=== PATIENT | male | born 1960 | race African-American/Black ===

== ENCOUNTER 2018-01-08 10:46 | Emergency (ER) | payer MEDICAID ==
[~2018-01-08] VITALS: Ht 185.4 cm; Wt 93.9 kg
[~2018-01-08 10:46] MED LIST: ACETAMINOP650 MG/20. PO; ASPIR 8181 MG ORAL; BACTRIM-DS1 EA ORAL; CEPHALEXIN500 MG PO; CUBICIN1 MG IV; HYDROMORPHONE HC4 M1 PO; IBUPROFEN600 MG PO; KEFLEX500 MG PO; LIDOCAINE HC35.44 GM TP; LIORESAL10 MG PO; LOVENOX10 M2 SUBQ; NORCO 5-325 TA1 EACH ORAL; NORCO 5-325 TA1 EACH PO; NORCO1 E1 ORAL; NORCO1 EA ORAL; OXYCODONE HCL5 M2 ORAL; PERCOCET 5-3251 EACH PO; PLAVIX75 MG ORAL; SEPTRA DS TABL1 EACH PO; TRAMADOL HCL50 MG PO; VANCOMYCIN1 GM/2502 IVPB; VICODIN 5-5001 EACH PO; lovenox
[2018-01-08] MEDS ORDERED: LYRICA75 M1 ORAL (11:03)
[2018-01-08] MEDS ORDERED: Norco 5mg/325mg tab PO ONE (11:15)
--- NOTE | 2018-01-08 11:37 | Emergency Room Report ---
History of Present Illness General Chief Complaint: Upper Extremity Injury Source: Patient Present Illness HPI 57-year-old male presents ED complaining of right elbow pain status post fall. States he had a mechanical trip and fall store yesterday and landed on his right elbow. He denies hitting his head or LOC. States he is currently taking Plavix and Lovenox but has not taken this medication one week. Notes bruising and swelling to the right elbow today. Pain is throbbing, 10 out of 10, nonradiating. Denies any other injuries. No other aggravating relieving factors. Denies any other associated symptoms Allergies: Coded Allergies: PIPERACILLIN (Verified Allergy, Severe, 05/01/13) TAZOBACTAM (Verified Allergy, Severe, 05/01/13) ADHESIVE (Unverified Allergy, Mild, 01/21/15) Patient History Past Medical History: HTN, ulcer, GERD, other - DVT Past Surgical History: none, other - prosthetic L leg Pertinent Family History: none Social History: Denies: smoking, alcohol use, drug use Immunizations: UTD Reviewed Nursing Documentation: PMH: Agreed; PSxH: Agreed Nursing Documentation-PMH Past Medical History: No History, Except For Hx Cardiac Problems: Yes - Prosthetic left leg, blood clotts Hx Hypertension: Yes Hx Cancer: No Hx Gastrointestinal Problems: Yes - GERD, GI ULCER Hx Neurological Problems: Yes Hx Numbness: Yes - LEFT LEG Review of Systems All Other Systems: negative except mentioned in HPI Physical Exam Vital Signs Date Time Temp Pulse Resp B/P (MAP) Pulse Ox O2 Delivery O2 Flow Rate FiO2 01/08/18 10:53 98.5 79 18 176/85 98 Room Air 98.4 Sp02 EP Interpretation: reviewed, normal General Appearance: no apparent distress, alert, GCS 15, non-toxic Head: normocephalic Eyes: bilateral eye normal inspection, bilateral eye PERRL ENT: normal ENT inspection Neck: normal inspection Respiratory: normal inspection Cardiovascular #1: normal inspection Gastrointestinal: normal inspection Rectal: deferred Genitourinary: no CVA tenderness Musculoskeletal: swelling, tender - R elbow Neurologic: alert, oriented x3, responsive, motor strength/tone normal, sensory intact, speech normal Psychiatric: judgement/insight normal, memory normal, mood/affect normal, no suicidal/homicidal ideation Skin: other - ecchymoses/bruising R elbow Lymphatic: normal inspection Medical Decision Making Diagnostic Impression: Primary Impression: Elbow contusion Qualified Codes: S50.01XA - Contusion of right elbow, initial encounter ER Course Hospital Course 57-year-old M presents to ED complaining of R elbow pain s/p trip and fall Differential diagnoses include: Fracture, dislocation, sprain, contusion Clinical course Patient placed on stretcher. After initial history and physical, I ordered pain medications and Xrays of R elbow Xrays prelim read shows no acute fracture/dislocation. placed in acewrap Diagnosis - elbow contusion Stable and discharged to home with prescription for Tylenol. apply ice, keep elevated. weight bear as tolerated. Followup with PMD. Return to ED if symptoms recur or worsen Other X-Ray Diagnostic Results Other X-Ray Diagnostic Results : X-Ray ordered: R elbow # of Views/Limited Vs Complete: 3 View Indication: Pain EP Interpretation: Yes Interpretation: no dislocation, no fractures, other - +soft tissue swelling Impression: No acute disease Electronically Signed by: Electronically signed by Emigdio Mason MD Last Vital Signs Date Time Temp Pulse Resp B/P (MAP) Pulse Ox O2 Delivery O2 Flow Rate FiO2 01/08/18 11:18 98.5 01/08/18 10:53 79 18 176/85 98 Room Air Status: improved Disposition: HOME, SELF-CARE Condition: Stable Scripts Acetaminophen* (TYLENOL EXTRA STRENGTH*) 500 Mg Tablet 500 MG ORAL Q8H PRN for Prn Headache/Temp > 101, #30 TAB 0 Refills Prov: Emigdio Mason MD 01/08/18 Referrals: NOT CHOSEN IPA/,REFERRING (PCP) Emigdio Mason MD Jan 08, 2018 11:37
[2018-01-08 12:04] VITALS: BP 140/73
[2018-01-08 12:30] VITALS: BP 140/73
[2018-01-08] MEDS ORDERED: TYLENOL EXTRA500 MG ORAL (12:31)
--- NOTE | 2018-01-08 16:41 | Diagnostic Imaging Report ---
Indications:Pain Technique: Three or 4 views of the right elbow Comparison: None Findings: There is marked soft tissue swelling. No definite acute fractures. No dislocations. No joint effusion. What are probably dystrophic calcifications are seen posterior to the distal humerus Impression: No acute bony trauma. Findings as noted
== END 2018-01-08 12:30 | disposition home or self-care (01) ==
LOC: EMR 11:20
DX: S50.01XA Contusion of right elbow, initial encounter (principal); W01.0XXA Fall on same level from slipping, tripping and stumbling without subsequent striking against object, initial encounter; Y92.9 Unspecified place or not applicable; I10 Essential (primary) hypertension; K21.9 Gastro-esophageal reflux disease without esophagitis; Z79.01 Long term (current) use of anticoagulants; Z79.02 Long term (current) use of antithrombotics/antiplatelets; Z91.14 Patient's other noncompliance with medication regimen
CPT/HCPCS: 99283

== ENCOUNTER 2018-04-04 10:54 | Emergency (ER) | payer MEDICAID ==
[~2018-04-04] VITALS: Ht 185.4 cm; Wt 90.7 kg
[~2018-04-04 10:54] MED LIST changes: +LYRICA75 M1 ORAL; +TYLENOL EXTRA500 MG ORAL
[2018-04-04 11:22] VITALS: BP 117/64
[2018-04-04 11:58] VITALS: BP 117/64
--- NOTE | 2018-04-04 14:14 | Emergency Room Report ---
History of Present Illness General Chief Complaint: General Complaint Source: Patient Present Illness HPI Patient presents reporting that he had right-sided elbow surgery On at [facility] He reports that he was in contact with the facility regarding the need for further assistance Patient also reports that he was given under dosing of pain medication Patient reports that after discussion with [facility] He presents here to see if there is any other avenue of assistance Allergies: Coded Allergies: PIPERACILLIN (Verified Allergy, Severe, 05/01/13) TAZOBACTAM (Verified Allergy, Severe, 05/01/13) ADHESIVE (Unverified Allergy, Mild, 01/21/15) Patient History Past Medical History: see triage record Pertinent Family History: none Reviewed Nursing Documentation: PMH: Agreed; PSxH: Agreed Nursing Documentation-PMH Past Medical History: No History, Except For Hx Cardiac Problems: Yes - Prosthetic left leg, blood clotts Hx Hypertension: Yes Hx Pacemaker: No Hx Asthma: No Hx COPD: No Hx Diabetes: No Hx Cancer: No Hx Gastrointestinal Problems: Yes - GERD, GI ULCER Hx Dialysis: No History Of Psychiatric Problem: No Hx Neurological Problems: Yes Hx Cerebrovascular Accident: No Hx Seizures: No Hx Numbness: Yes - LEFT LEG Review of Systems All Other Systems: negative except mentioned in HPI Physical Exam Vital Signs Date Time Temp Pulse Resp B/P (MAP) Pulse Ox O2 Delivery O2 Flow Rate FiO2 04/04/18 10:57 98.5 107 18 117/64 99 Room Air 98.4 Sp02 EP Interpretation: reviewed, normal General Appearance: well appearing, no apparent distress Head: normocephalic, atraumatic Eyes: bilateral eye PERRL, bilateral eye EOMI ENT: hearing grossly normal, normal pharynx Neck: full range of motion, supple Respiratory: lungs clear, normal breath sounds Cardiovascular #1: regular rate, rhythm Gastrointestinal: non tender Musculoskeletal: other - Cast in place on the right upper arm no sign of any compartment syndrome no edema Neurologic: alert, oriented x3, responsive Skin: normal color Lymphatic: no adenopathy Medical Decision Making Diagnostic Impression: Primary Impression: medical screening evaluation Additional Impression: elbow surgery ER Course Patient is awake and alert Has appropriate medical screening evaluation Patient asking regarding home assistance and pain medication I did notify him that on [employer] system the patient appears to be receiving significant amount of hydromorphone and he does report that he does have this medication left He was also instructed to follow-up at his primary facility where the procedure was performed if he requires any further assistance And at this time is appropriate for close outpatient follow-up Last Vital Signs Date Time Temp Pulse Resp B/P (MAP) Pulse Ox O2 Delivery O2 Flow Rate FiO2 04/04/18 11:58 98.5 107 18 117/64 99 Room Air Status: unchanged Disposition: HOME, SELF-CARE Condition: Stable Referrals: NOT CHOSEN IPA/MD,REFERRING Patient Instructions: Medical Screening Exam Additional Instructions: Please follow-up at facility where procedure was performed Kimmy Mai DO Apr 04, 2018 14:14
== END 2018-04-04 12:13 | disposition home or self-care (01) ==
LOC: EMR 11:06
DX: Z48.89 Encounter for other specified surgical aftercare (principal); I10 Essential (primary) hypertension; Z87.19 Personal history of other diseases of the digestive system
CPT/HCPCS: 99282

== ENCOUNTER 2018-04-28 12:48 | Emergency (ER) | payer MEDICAID ==
[~2018-04-28] VITALS: Ht 185.4 cm; Wt 95.3 kg
--- NOTE | 2018-04-28 13:09 | Emergency Room Report ---
History of Present Illness General Chief Complaint: Upper Extremity Injury Source: Patient, Medical Record Present Illness HPI 57-year-old male patient presents ER complaining of right elbow pain status post trip and fall injury earlier today. Reports she was getting into his car when he "slipped on some oil" and fell onto his right elbow. Reports a history of right elbow surgery about a month ago to repair a ruptured tendon. Denies hitting his head or loss consciousness. Reports right-hand dominant. Denies loss of range of motion or pain in wrist. Reports pain and swelling site of injury. Reports on pain medication currently, states he took 4 mg of Dilaudid earlier today. states that he takes Dilaudid due to chronic pain and vascular pain in legs. Denies numbness or tingling. Denies bleeding. Allergies: Coded Allergies: PIPERACILLIN (Verified Allergy, Severe, 05/01/13) TAZOBACTAM (Verified Allergy, Severe, 05/01/13) ADHESIVE (Unverified Allergy, Mild, 01/21/15) Patient History Past Medical History: see triage record Reviewed Nursing Documentation: PMH: Agreed; PSxH: Agreed Nursing Documentation-PMH Past Medical History: No History, Except For Hx Cardiac Problems: No - Prosthetic left leg, blood clotts Hx Hypertension: Yes Hx Pacemaker: No Hx Asthma: No Hx COPD: No Hx Diabetes: No Hx Cancer: No Hx Gastrointestinal Problems: Yes - GERD, GI ULCER Hx Dialysis: No Hx Neurological Problems: Yes Hx Cerebrovascular Accident: No Hx Seizures: No Hx Numbness: Yes - LEFT LEG Review of Systems All Other Systems: negative except mentioned in HPI Physical Exam Vital Signs Date Time Temp Pulse Resp B/P (MAP) Pulse Ox O2 Delivery O2 Flow Rate FiO2 04/28/18 12:51 97.4 100 18 151/97 95 Room Air 97.3 Sp02 EP Interpretation: reviewed, normal General Appearance: well appearing, no apparent distress, alert, GCS 15, non- toxic Head: normocephalic, atraumatic Eyes: bilateral eye normal inspection, bilateral eye PERRL ENT: hearing grossly normal, normal pharynx, no angioedema, normal voice, uvula midline, moist mucus membranes Neck: full range of motion Respiratory: lungs clear, normal breath sounds, no rhonchi, no respiratory distress, no accessory muscle use, no wheezing, speaking full sentences Cardiovascular #1: regular rate, rhythm, no edema Cardiovascular #2: 2+ radial (R), 2+ radial (L) Musculoskeletal: back normal, digits/nails normal, gait/station normal, normal range of motion, non-tender, swelling - right posterior elbow, ecchymosis, other - NVI, no snuffbox tenderness, no erythema or warmth to touch, sensation intact to light touch, cap refill less than 2 seconds, tender - right posterior elbow Neurologic: alert, oriented x3, responsive, motor strength/tone normal, sensory intact Psychiatric: mood/affect normal Skin: no rash Medical Decision Making PA Attestation Dr. Mason is my supervising Physician whom patient management has been discussed with. Diagnostic Impression: Primary Impression: Elbow contusion ER Course Pt. presents to the ED c/o right elbow pain and swelling. Ddx considered but are not limited to fracture, sprain, strain, contusion, dislocation. No erythema, no warmth to touch, no fever, nontoxic appearing, low suspicion for septic joint. Soft compartments, no pulselessness, no pallor, no paresthesias, low suspicion for compartment syndrome at this time. Vital signs: are WNL, pt. is afebrile Ordered X-ray and pain medication. ER COURSE patient took a Dilaudid medication earlier today prior to arrival at the ER, will not provide pain medication currently. spoke on the phone with PA from Dr. Carbajal orthopedic office with whom patient elbow surgery was performed, instructed patient to follow-up at office on Thursday. Informed that had tricep tendon repair surgery. on physical exam, patient has full range of motion, low suspicion for repeat tendon rupture injury. Advised follow-up with medical specialist on Thursday, call to schedule appointment. An X-ray of the right elbow shows soft tissue swelling, no acute fracture, calcifications, per the preliminary reading. likely contusion causing pain symptoms. Consul with radiology, agrees with no acute fracture reading, [place] wrap was applied to right elbow and was checked afterwards by me showing good alignment and support with distal neurovascular functioning intact. Patient reports pain symptoms improved with [place] wrap and medication. Patient instructed on RICE method: rest, ice, compression, elevation. Patient instructed on rest, ice and heat. Patient instructed to be NWB Contact information for orthopedic urgent care provided, follow-up with urgent care if unable to followup with primary care provider and get referral to medical specialist. Followup with primary care provider. Discuss referral to ortho/pain management/ PT as needed. Discuss further imaging with MRI/CT as needed. Provided patient with [place] for pain. Will not discharge home with opioid pain prescription. DISCHARGE: -Rx provided for Ibuprofen At this time pt. is stable for d/c to home. Patient is resting comfortably, in no acute distress, nontoxic appearing, talking without difficulty. Will provide printed patient care instructions, and any necessary prescriptions. Patient instructed to follow with primary care provider in 3 - 5 days and to request further follow-up as needed. Care plan and follow up instructions have been discussed with the patient prior to discharge. Take medications as directed. Patient questions asked and answered. Patient reports understanding and agreement to treatment plan. ER precautions given, patient instructed to return to ER immediately for any new or worsening of symptoms. - Please note that this Emergency Department Report was dictated using [employer] card press operator technology software, occasionally this can lead to erroneous entry secondary to interpretation by the dictation equipment. Other X-Ray Diagnostic Results Other X-Ray Diagnostic Results : X-Ray ordered: right elbow # of Views/Limited Vs Complete: 3 View Indication: Pain EP Interpretation: Yes PA Xray: Interpretation reviewed, by supervising MD, and agrees with findings. Interpretation: no dislocation, no fractures, other - soft tissue swelling, multiple small calcifications Impression: Other - soft tissue swelling, no fracture PA Scribe Text Braxton Calles PA-C Last Vital Signs Date Time Temp Pulse Resp B/P (MAP) Pulse Ox O2 Delivery O2 Flow Rate FiO2 04/28/18 12:51 97.4 100 18 151/97 95 Room Air 97.3 Disposition: HOME, SELF-CARE Condition: Stable Scripts Ibuprofen* (MOTRIN*) 600 Mg Tablet 600 MG ORAL Q8H PRN for For Pain, #30 TAB 0 Refills Prov: Linden Calles 04/28/18 Patient Instructions: Elbow Contusion, Psyc-dn-Sest Additional Instructions: Followup with Dr. Carbajal office on Thursday, call today to schedule an appointment. Patient instructed to follow up with primary care provider and discuss further referral to orthopedics/physical therapy/pain management as needed. If unable to followup with PCP, followup with orthopedic urgent care in 5-7 days , call to schedule appointment. Patient instructed on RICE method: rest, ice, compression, elevation. Patient instructed to NWB. Take medications as directed. Patient questions asked and answered. ER precautions given, patient instructed to return to ER immediately for any new or worsening of symptoms. [facility] [address] [facility], [id number] [email or web address] Linden Calles Apr 28, 2018 13:09
[2018-04-28] MEDS ORDERED: Norco 5mg/325mg tab ORAL ONE (14:00)
[2018-04-28 14:07] VITALS: BP 148/86
[2018-04-28] MEDS ORDERED: IBUPROFEN600 MG ORAL (14:23)
[2018-04-28 14:36] VITALS: BP 148/86
--- NOTE | 2018-04-28 14:36 | Diagnostic Imaging Report ---
Indications: Right elbow pain, history of recent triceps tendon repair, fall after cast removal Technique: Three or 4 views of the right elbow Comparison: 01/08/2018 Findings: Again demonstrated is considerable soft tissue swelling, primarily posteriorly to the distal humerus and dorsal to the proximal ulna. Previously demonstrated cluster of calcifications is now closer to the olecranon. This may represent calcifications within the triceps tendon, which has been approximated to the ulna as result of interim triceps tendon repair. A second cluster of dystrophic calcifications is seen more proximally. Some surgical screw holes are seen in the proximal ulna. These were not evident previously. No effusion. No acute fractures. No dislocations. Impression: Postsurgical changes, as described No acute bony trauma Findings discussed by phone with ISAC Limon, in the emergency room at the time of interpretation
== END 2018-04-28 14:39 | disposition home or self-care (01) ==
LOC: EMR 13:21
DX: S50.01XA Contusion of right elbow, initial encounter (principal); W01.0XXA Fall on same level from slipping, tripping and stumbling without subsequent striking against object, initial encounter; Y92.89 Other specified places as the place of occurrence of the external cause; Z88.0 Allergy status to penicillin; K21.9 Gastro-esophageal reflux disease without esophagitis
CPT/HCPCS: 99283

== ENCOUNTER 2018-09-03 10:19 | Emergency (ER) | payer MEDICAID ==
[~2018-09-03] VITALS: Ht 185.4 cm; Wt 93.0 kg
[~2018-09-03 10:19] MED LIST changes: +IBUPROFEN600 MG ORAL
[2018-09-03 10:38] VITALS: BP 158/103
--- NOTE | 2018-09-03 10:48 | NUR ---
ED Nurse Note: Pt came in due to right side gum swelling and toothache x 5 days. Pt has a dental appt 09/11/18 but is in severe pain and states pus came out from his mouth last night. Pt is AAO x4, ambulates with non labored breathing. Speaks in full sentences.
[2018-09-03] MEDS ORDERED: Isovue-300 100ml vial INJ PRN (11:00)
[2018-09-03] MEDS ORDERED: Clindamycin 600mg 50 ML IVPB ONE (11:00)
[2018-09-03 11:32] LABS: BASOPHILS % (AUTO) 1.2 % (0.0-2.0); EOSINOPHILS % (AUTO) 1.9 % (0.0-3.0); HEMATOCRIT 48.4 % (42.0-52.0); HEMOGLOBIN 16.1 G/DL (14.2-18.0); LYMPHOCYTES % (AUTO) 34.5 % (20.0-45.0); MEAN CORPUSCULAR VOLUME 87 FL (80-99); MONOCYTES % (AUTO) 8.3 % (1.0-10.0); NEUTROPHILS % (AUTO) 54.1 % (45.0-75.0); PLATELET COUNT 223 K/UL (150-450); RED BLOOD COUNT 5.57 M/UL (4.70-6.10); RED CELL DISTRIBUTION WIDTH 12.6 % (11.6-14.8); WHITE BLOOD COUNT 4.1 K/UL (4.8-10.8)
[2018-09-03 11:39] LABS: ANION GAP 6 mmol/L (5-15); BLOOD UREA NITROGEN 21 mg/dL (7-18); CALCIUM 9.5 MG/DL (8.5-10.1); CARBON DIOXIDE 28 MMOL/L (21-32); CHLORIDE 100 MMOL/L (98-107); CREATININE 1.3 MG/DL (0.55-1.30); POTASSIUM 4.2 MMOL/L (3.5-5.1); SODIUM 134 MMOL/L (136-145)
[2018-09-03 11:44] LABS: ALANINE AMINOTRANSFERASE 47 U/L (12-78); ALBUMIN 3.3 G/DL (3.4-5.0); ALBUMIN/GLOBULIN RATIO 0.8 (1.0-2.7); ALKALINE PHOSPHATASE 93 U/L (46-116); ASPARTATE AMINO TRANSFERASE 21 U/L (15-37); BILIRUBIN,TOTAL 0.3 MG/DL (0.2-1.0)
[2018-09-03] MEDS ORDERED: Morphine Sulfate 4mg/ml Inj (IV USE ONLY) IVP ONE (12:00)
--- NOTE | 2018-09-03 12:01 | NUR ---
ED Nurse Note: Patient taken down to CT in wheelchair.
--- NOTE | 2018-09-03 13:13 | Diagnostic Imaging Report ---
Indication: Facial swelling right side. Toothache. Technique: Continuous helical transaxial imaging of the maxillofacial structures obtained after intravenous contrast administration. Coronal 2-D reformats were also obtained. Study obtained in a Siemens sensation [address] Total Dose length Product (DLP): 729.[address] Dose Index Volume (CTDIvol): 28.19 mGy Comparison: None Findings: No abscess identified. Soft tissues are unremarkable and appear relatively symmetric. Perimandibular soft tissues and buccal mucosa appear normal. No obvious periapical lucencies are identified with regard to the upper maxillary or mandibular teeth. Floor the mouth, submandibular/sublingual regions are unremarkable. There is no adenopathy. Parapharyngeal fat appears symmetric. The visualized airway is unremarkable. IMPRESSION: Negative evaluation. No abscess identified
--- NOTE | 2018-09-03 14:05 | Emergency Room Report ---
History of Present Illness General Chief Complaint: Skin Rash/Abscess Source: Patient Present Illness HPI 58-year-old male with history of tobacco use, comes ER with complaints of worsening facial pain and reports he felt a pus pocket open up from his gums just today, and feels like he's having persistent and worsening swelling on his face despite being on amoxicillin, he's taken 4 doses total. He was given amoxicillin for dental abscess. He denies blurred vision, sore throat, numbness , tingling, weakness, severe headaches, any other symptoms. Allergies: Coded Allergies: PIPERACILLIN (Verified Allergy, Severe, 05/01/13) TAZOBACTAM (Verified Allergy, Severe, 05/01/13) ADHESIVE (Unverified Allergy, Mild, 01/21/15) Patient History Past Medical History: see triage record Reviewed Nursing Documentation: PMH: Agreed; PSxH: Agreed Nursing Documentation-PMH Past Medical History: No History, Except For Hx Cardiac Problems: No - Prosthetic left leg, blood clotts Hx Hypertension: Yes Hx Pacemaker: No Hx Asthma: No Hx COPD: No Hx Diabetes: No Hx Cancer: No Hx Gastrointestinal Problems: Yes - GERD, GI ULCER Hx Dialysis: No Hx Neurological Problems: Yes Hx Cerebrovascular Accident: No Hx Seizures: No Hx Numbness: Yes - LEFT LEG Review of Systems All Other Systems: negative except mentioned in HPI Physical Exam Vital Signs Date Time Temp Pulse Resp B/P (MAP) Pulse Ox O2 Delivery O2 Flow Rate FiO2 09/03/18 10:38 98.4 92 16 158/103 94 Room Air Sp02 EP Interpretation: reviewed, normal General Appearance: no apparent distress, alert, non-toxic Head: normocephalic Eyes: bilateral eye normal inspection, bilateral eye PERRL, bilateral eye EOMI ENT: normal ENT inspection, hearing grossly normal, normal pharynx, no angioedema, normal voice, uvula midline, moist mucus membranes, other - R mandibular molar with caries, mild gingival erythema, no obvious abscess/ fluctuance Neck: normal inspection, full range of motion, supple, supple/symm/no masses Respiratory: chest non-tender, lungs clear, normal breath sounds, no rhonchi, no respiratory distress, no retraction, no accessory muscle use, no wheezing, chest symmetrical, palpation of chest normal Cardiovascular #1: normal peripheral pulses, regular rate, rhythm, no edema, no gallop, no JVD, no murmur, no rub Cardiovascular #2: 2+ radial (R), 2+ radial (L) Gastrointestinal: normal inspection, non tender, soft, no mass, no guarding, no rebound Rectal: deferred Genitourinary: normal inspection, no CVA tenderness Musculoskeletal: back normal, gait/station normal, normal range of motion, non- tender, no calf tenderness Neurologic: alert, responsive, front office coordinator III-XII nml as tested, motor strength/tone normal, sensory intact, speech normal Psychiatric: judgement/insight normal, memory normal, mood/affect normal Skin: normal color, no rash, warm/dry, normal turgor Lymphatic: no adenopathy Medical Decision Making ER Course Patient with normal iv-enhanced ct of maxillofacial structures, no obvious external swelling or deep space abscess, given IV clindamycin, IVF, morphine, and re-evaluated; patient feels subjective improvement of facial swelling and on exam I still don't notice any facial edema or erythema. Patient instructed to STOP the amoxicillin, and start clindamycin, along with salt water gargles since he felt an abscess spontaneously drain prior to arrival. CT/MRI/US Diagnostic Results CT/MRI/US Diagnostic Results : Imaging Test Ordered: ct maxillofacial bones with iv contrast Impression no acute dz Last Vital Signs Date Time Temp Pulse Resp B/P (MAP) Pulse Ox O2 Delivery O2 Flow Rate FiO2 09/03/18 10:38 98.4 16 158/103 94 Room Air 09/03/18 10:38 92 Disposition: HOME, SELF-CARE Condition: Stable Referrals: NON PHYSICIAN (PCP) TETE FELTON M.D Sep 03, 2018 14:05
[2018-09-03] MEDS ORDERED: CLINDAMYCIN HC300 MG ORAL (14:09)
[2018-09-03] MEDS ORDERED: IBUPROFEN600 MG ORAL (14:09)
[2018-09-03 14:29] VITALS: BP 143/88
--- NOTE | 2018-09-03 14:29 | NUR ---
ER DISCHARGE NOTE: Patient is cleared to be discharged per ERMD, pt is aox4, on room air, with stable vital signs. pt was given dc and prescription instructions, pt was able to verbalize understanding, pt id band and iv site removed without complications. pt is able to ambulate with steady gait. pt took all belongings.
== END 2018-09-03 14:29 | disposition home or self-care (01) ==
LOC: EMR 10:52
DX: K04.7 Periapical abscess without sinus (principal); I10 Essential (primary) hypertension; K21.9 Gastro-esophageal reflux disease without esophagitis; Z88.1 Allergy status to other antibiotic agents
CPT/HCPCS: 36415; 70487; 80053; 85025; 87040; 96361; 96365; 96375; 99284; J2270; J2405; Q9967; S0077

== ENCOUNTER 2020-08-20 12:07 | Emergency (ER) | payer MEDICAID ==
[~2020-08-20] VITALS: Ht 185.4 cm; Wt 90.7 kg
[~2020-08-20 12:07] MED LIST changes: +CLINDAMYCIN HC300 MG ORAL
--- NOTE | 2020-08-20 12:35 | NUR ---
ED Nurse Note:pt stated that he smashed his thumb in the door a month ago and it still hurts. pt's left thumb nail is slightly deformed. no issues moving thumb states the pain has kept him up the past 2 night. he's afraid he has an infection in it.
--- NOTE | 2020-08-20 12:48 | NUR ---
ED Nurse Note:pt pacing outside of room. asked him to go back in. his response was, "when am I going to be seen". "I shouldn't have to wait, ya don't look busy". Explained to him that there were several ambulances that came at the same time and the dr would come and see him as soon as he could. this pt became visbily upset yelling at this nurse. He stated, "I'm going to the desk to ask someone myself". pt became verbally aggressive with the provider yelling at the ERMD stating, "you ain't doing anything but sitting in that chair". ERMD attempted to speak with pt calmly. Pt stated he is not going to sit in his room he is going to stay at the charge desk cause he is more comfortable there. pt yelled, "I just want to know how much longer I gotta wait until you see me". dr stated he can't give him an exact time, maybe 20mins. pt asked if he could wait outside. pt will be called when he is able to see him.
[2020-08-20] MEDS ORDERED: Tylenol #3 tab (300mg/30mg) ORAL ONE (13:15)
--- NOTE | 2020-08-20 13:21 | NUR ---
ED Nurse Note: gave pt his T#3 pill and witnessed him accidently dropping it on the floor. wasted that pill with PRO Davis in the med room and issued him another one. opened pkg in front of pt and handed him the pill
[2020-08-20 13:23] VITALS: BP 180/95
[2020-08-20] MEDS ORDERED: AUGMENTIN 875-1 EAC1 ORAL (14:13)
[2020-08-20] MEDS ORDERED: ACETAMINOPHEN-1 EAC1 ORAL (14:13)
--- NOTE | 2020-08-20 14:15 | Diagnostic Imaging Report ---
Indication: Left thumb pain located in the nailbed Technique: 3 views of the left thumb Comparison: none Findings: No acute fracture. No dislocation. Joint spaces are preserved. No radiopaque foreign body Impression: Negative
--- NOTE | 2020-08-20 14:18 | NUR ---
ER DISCHARGE NOTE: Patient is cleared to be discharged per ERMD, pt is aox4, on room air, with stable vital signs. pt was given dc and prescription instructions, pt was able to verbalize understanding. pt is able to ambulate with steady gait. pt took all belongings.
--- NOTE | 2020-08-25 17:23 | Emergency Room Report ---
History of Present Illness General Chief Complaint: Upper Extremity Injury Source: Patient Present Illness HPI 60-year-old male presents with pain to left thumb. States he smashed it in a door about 1 month ago. States he is been having persistent pain since. Thumb appears somewhat swollen. The nail appeared damaged and has started to heal. Throbbing, 8 out of 10, nonradiating. Denies any other injuries. No other aggravating relieving factors. Denies any other associated symptoms Allergies: Coded Allergies: PIPERACILLIN (Verified Allergy, Severe, 05/01/13) TAZOBACTAM (Verified Allergy, Severe, 05/01/13) ADHESIVE (Unverified Allergy, Mild, 01/21/15) COVID-19 Screening Contact w/high risk pt: No Experienced COVID-19 symptoms?: No COVID-19 Testing performed BLUEPRINTING AND PHOTOCOPY SUPERVISOR: No Patient History Past Medical History: HTN, ulcer, GERD Past Surgical History: none Pertinent Family History: none Social History: Denies: smoking, alcohol use, drug use Immunizations: UTD Reviewed Nursing Documentation: PMH: Agreed; PSxH: Agreed Nursing Documentation-PMH Past Medical History: No History, Except For Hx Cardiac Problems: No - Prosthetic left leg, blood clotts Hx Hypertension: Yes Hx Pacemaker: No Hx Asthma: No Hx COPD: No Hx Diabetes: No Hx Cancer: No Hx Gastrointestinal Problems: Yes - GERD, GI ULCER Hx Dialysis: No Hx Neurological Problems: Yes Hx Cerebrovascular Accident: No Hx Seizures: No Hx Numbness: Yes - LEFT LEG Review of Systems All Other Systems: negative except mentioned in HPI Physical Exam Sp02 EP Interpretation: reviewed, normal General Appearance: no apparent distress, alert, GCS 15, non-toxic Head: normocephalic, atraumatic Eyes: bilateral eye normal inspection, bilateral eye PERRL ENT: hearing grossly normal, normal pharynx, no angioedema, normal voice Neck: full range of motion, supple/symm/no masses Respiratory: chest non-tender, lungs clear, normal breath sounds, speaking full sentences Cardiovascular #1: regular rate, rhythm, no edema Cardiovascular #2: 2+ carotid (R), 2+ carotid (L), 2+ radial (R), 2+ radial (L), 2+ dorsalis pedis (R), 2+ dorsalis pedis (L) Gastrointestinal: normal bowel sounds, non tender, soft, non-distended, no guarding, no rebound Rectal: deferred Genitourinary: normal inspection, no CVA tenderness Musculoskeletal: back normal, normal range of motion, gait/station normal, tender - L thumb swelling, healing naibed Neurologic: alert, motor strength/tone normal, oriented x3, sensory intact, responsive, speech normal Psychiatric: judgement/insight normal, memory normal, mood/affect normal, no suicidal/homicidal ideation Reflexes: 3+ bicep (R), 3+ bicep (L), 3+ tricep (R), 3+ tricep (L), 3+ knee (R), 3+ knee (L) Lymphatic: no adenopathy Procedures Additional Procedure Procedure Narrative Subungual hematoma Patient placed on stretcher. Foot is draped/prepped in sterile fashion. I insert the cautery directly into the nail bed until no further ressistance is met. Is no expression of blood or discharge. Dressing applied. Patient tolerated procedure without complication Medical Decision Making Diagnostic Impression: Primary Impression: Finger contusion Qualified Codes: S60.112A - Contusion of left thumb with damage to nail, initial encounter ER Course Hospital Course 60-year-old male presents with left thumb pain and swelling after slamming in car door nearly 1 month ago Differential diagnoses include: Fracture, dislocation, sprain, contusion Clinical course Patient placed on stretcher. He came to the frontend engineer screaming and demanding when he would be seen. Nursing and myself tried explained to the patient and numerous ambulances had, at the same time and there were numerous patients to be seen at a single time. He became very agitated and started screaming and yelling stating that we are not that busy. I asked patient to wait outside if he could not control his voice. I later retrieved patient and he apologized. I examined his thumb. It did appear swollen. The nail appeared to be damaged and is starting to heal. Patient does have significant tenderness to the distal aspect of the thumb. X- rays show no fracture. Concern for possible infection under the nailbed. Using cautery device we lanced the nail but no fluid was expressed I discussed with patient. Will discharge with antibiotics. Pain meds. Safe for discharge with close outpatient follow-up Diagnosis finger contusion Stable and discharged to home with prescription for tylenol #3, augmentin. warm soaks. weight bear as tolerated. Followup with PMD. Return to ED if symptoms recur or worsen Other X-Ray Diagnostic Results Other X-Ray Diagnostic Results : X-Ray ordered: L thumb # of Views/Limited Vs Complete: 3 View Indication: Pain EP Interpretation: Yes Interpretation: no dislocation, no soft tissue swelling, no fractures Impression: No acute disease Electronically Signed by: Electronically signed by Emigdio Mason MD Status: improved Disposition: HOME, SELF-CARE Condition: Stable Scripts Acetaminophen With Codeine (T#3) (TYLENOL #3 TAB*) Y Tab 1 TAB ORAL Q4H PRN for For Pain, #12 TAB Prov: Emigdio Mason MD 08/20/20 Amoxicillin/Potassium Clav 875-125* (AUGMENTIN 875-125 TABLET*) 1 Each Tablet 1 TAB ORAL TWICE A DAY, #14 TAB Prov: Emigdio Mason MD 08/20/20 Patient Instructions: Contusion Emigdio Mason MD Aug 25, 2020 17:23
== END 2020-08-20 14:18 | disposition home or self-care (01) ==
LOC: EMR 12:43
DX: S60.112A Contusion of left thumb with damage to nail, initial encounter (principal); W22.8XXA Striking against or struck by other objects, initial encounter; Y92.9 Unspecified place or not applicable; I10 Essential (primary) hypertension; K21.9 Gastro-esophageal reflux disease without esophagitis; Z88.8 Allergy status to other drugs, medicaments and biological substances
CPT/HCPCS: 11740; 73140; Z7502; 99283